=== PATIENT | female | born 1950 | race Hispanic/Latino ===

== ENCOUNTER 2020-12-10 13:25 | Inpatient (IN) | payer MEDICARE ==
[~2020-12-10] VITALS: Ht 154.9 cm; Wt 91.5 kg
[2020-12-10] VITALS (10 sets, daily range): BP systolic 99–151; BP diastolic 65–77
[2020-12-10] MEDS ORDERED: IOHEXOL-350 50ML VIAL IV ONE (14:19)
[2020-12-10] MEDS ORDERED: HEPARIN 10,000 UNIT/10ML (1,000 UNIT/ML) VIAL ONE (14:19)
[2020-12-10] MEDS ORDERED: IOHEXOL 350 MG/ML 100ML INFUS..BTL IV ONE (14:19)
[2020-12-10] MEDS ORDERED: LIDOCAINE HCL 400MG/20ML VIAL ONE (14:19)
[2020-12-10] MEDS ORDERED: MIDAZOLAM HCL 1 MG/ML 2ML VIAL ONE (14:19)
[2020-12-10] MEDS ORDERED: HEPARIN 25,000 UNITS/250ML D5W 250 ML IV SCH (15:30)
[2020-12-10 15:49] LABS: BASOPHILS % (AUTO) 0.1 % (0.0-5.0); HEMATOCRIT 42.8 % (36-48); LYMPHOCYTES % (AUTO) 3.4 % (21.0-51.0); MEAN CORPUSCULAR HEMOGLOBIN 31.9 pg (27.0-33.0); MEAN CORPUSCULAR HGB CONC 33.9 g/dL (32.0-36.0); MEAN CORPUSCULAR VOLUME 94.1 fL (79-99); MONOCYTES % (AUTO) 0.4 % (3.0-13.0); NEUTROPHILS % (AUTO) 95.6 % (40.0-77.0); PLATELET COUNT (AUTO) 157 K/uL (130-400); RED BLOOD CELL COUNT(AUTO) 4.55 MIL/uL (4.00-5.50); RED CELL DISTRIBUTION WIDTH 12.7 % (11.0-15.5); WHITE BLOOD COUNT (AUTO) 14.1 K/uL (4.8-10.8)
[2020-12-10] MEDS: METOPROLOL TARTRATE 25 MG TAB PO SCH (20:44)
[2020-12-10] MEDS ORDERED: MORPHINE 2 MG SYG IVP PRN (21:00)
[2020-12-10] MEDS: ACETAMINOPHEN 325 MG TAB PO PRN (21:53)
[2020-12-11] VITALS (28 sets, daily range): BP systolic 86–133; BP diastolic 53–78
[2020-12-11 05:27] LABS: HEMATOCRIT 42.3 % (36-48); MEAN CORPUSCULAR HEMOGLOBIN 32.3 pg (27.0-33.0); MEAN CORPUSCULAR HGB CONC 34.5 g/dL (32.0-36.0); MEAN CORPUSCULAR VOLUME 93.6 fL (79-99); RED BLOOD CELL COUNT(AUTO) 4.52 MIL/uL (4.00-5.50); RED CELL DISTRIBUTION WIDTH 12.7 % (11.0-15.5); WHITE BLOOD COUNT (AUTO) 16.2 K/uL (4.8-10.8)
[2020-12-11 05:40] LABS: HEMOGLOBIN A1C 5.8 % (4.0-6.0)
[2020-12-11 05:41] LABS: INR 1.02 (0.85-1.15); PROTHROMBIN TIME 10.9 SEC (9.6-11.6)
[2020-12-11 05:43] LABS: PARTIAL THROMBOPLASTIN TIME 46.1 SEC (26.3-35.5)
[2020-12-11 06:18] LABS: ALBUMIN 3.3 g/dL (3.5-5.0); BILIRUBIN,TOTAL 0.8 mg/dL (0.2-1.0); CREATININE 1.4 mg/dL (0.5-1.5); POTASSIUM 3.5 mmol/L (3.5-5.1); TOTAL PROTEIN, SERUM 7.6 g/dL (6.0-8.3)
[2020-12-11 06:22] LABS: TROPONIN I 16.73 ng/mL (0.00-0.06)
[2020-12-11] MEDS ORDERED: MORPHINE 5 MG/ML VIAL (5MG OR GREATER DOSE) IV SCH (06:45)
[2020-12-11] MEDS: CLOPIDOGREL 75MG TAB PO SCH (08:07)
[2020-12-11] MEDS: PANTOPRAZOLE 40 MG TAB DR PO SCH (08:07)
[2020-12-11] MEDS: ATORVASTATIN 40 MG TABLET PO SCH (08:07)
[2020-12-11] MEDS: METOPROLOL TARTRATE 25 MG TAB PO SCH ×2 (08:07→21:18)
[2020-12-11] MEDS ORDERED: CLOPIDOGREL 75MG TAB PO SCH (09:00)
[2020-12-11] MEDS ORDERED: ASPIRIN 81 MG EC TAB PO SCH (09:00)
[2020-12-11] MEDS ORDERED: ATOR40TA71 PO (10:46)
[2020-12-11] MEDS ORDERED: AMLO-257 PO (10:46)
[2020-12-11] MEDS ORDERED: ERGO500093 PO (10:46)
[2020-12-11] MEDS ORDERED: BENZ-70 PO (10:46)
[2020-12-11] MEDS ORDERED: GABA-529 PO (10:46)
[2020-12-11] MEDS ORDERED: LORA10TA7 PO (10:46)
[2020-12-11] MEDS: ENOXAPARIN SODIUM 100 MG/1 ML SQ SCH (14:12)
[2020-12-12] VITALS (18 sets, daily range): BP systolic 90–134; BP diastolic 44–72
[2020-12-12 03:46] LABS: BASOPHILS % (AUTO) 0.2 % (0.0-5.0); EOSINOPHILS % (AUTO) 0.1 % (0.0-8.0); HEMATOCRIT 40.5 % (36-48); LYMPHOCYTES % (AUTO) 22.2 % (21.0-51.0); MEAN CORPUSCULAR HEMOGLOBIN 31.8 pg (27.0-33.0); MEAN CORPUSCULAR HGB CONC 33.3 g/dL (32.0-36.0); MEAN CORPUSCULAR VOLUME 95.3 fL (79-99); MONOCYTES % (AUTO) 6.4 % (3.0-13.0); NEUTROPHILS % (AUTO) 70.7 % (40.0-77.0); PLATELET COUNT (AUTO) 158 K/uL (130-400); RED BLOOD CELL COUNT(AUTO) 4.25 MIL/uL (4.00-5.50); RED CELL DISTRIBUTION WIDTH 13.2 % (11.0-15.5); WHITE BLOOD COUNT (AUTO) 17.6 K/uL (4.8-10.8)
[2020-12-12 04:03] LABS: CREATININE 1.7 mg/dL (0.5-1.5); POTASSIUM 3.6 mmol/L (3.5-5.1)
[2020-12-12] MEDS: ATORVASTATIN 40 MG TABLET PO SCH (09:38)
[2020-12-12] MEDS: CLOPIDOGREL 75MG TAB PO SCH (09:38)
[2020-12-12] MEDS: PANTOPRAZOLE 40 MG TAB DR PO SCH (09:38)
[2020-12-12] MEDS: METOPROLOL TARTRATE 25 MG TAB PO SCH ×2 (09:38→20:58)
[2020-12-12] MEDS: ENOXAPARIN SODIUM 100 MG/1 ML SQ SCH (09:39)
[2020-12-12] MEDS: ACETAMINOPHEN 325 MG TAB PO PRN (09:45)
[2020-12-13] VITALS (24 sets, daily range): BP systolic 90–160; BP diastolic 40–82
[2020-12-13 03:44] LABS: BASOPHILS % (AUTO) 0.3 % (0.0-5.0); EOSINOPHILS % (AUTO) 0.8 % (0.0-8.0); HEMATOCRIT 39.6 % (36-48); LYMPHOCYTES % (AUTO) 24.2 % (21.0-51.0); MEAN CORPUSCULAR HEMOGLOBIN 31.9 pg (27.0-33.0); MEAN CORPUSCULAR HGB CONC 33.1 g/dL (32.0-36.0); MEAN CORPUSCULAR VOLUME 96.4 fL (79-99); NEUTROPHILS % (AUTO) 67.3 % (40.0-77.0); PLATELET COUNT (AUTO) 142 K/uL (130-400); RED BLOOD CELL COUNT(AUTO) 4.11 MIL/uL (4.00-5.50); RED CELL DISTRIBUTION WIDTH 13.2 % (11.0-15.5); WHITE BLOOD COUNT (AUTO) 11.9 K/uL (4.8-10.8)
[2020-12-13 04:01] LABS: BILIRUBIN,TOTAL 0.9 mg/dL (0.2-1.0); CREATININE 1.4 mg/dL (0.5-1.5); POTASSIUM 3.4 mmol/L (3.5-5.1); TOTAL PROTEIN, SERUM 6.8 g/dL (6.0-8.3)
[2020-12-13] MEDS ORDERED: KCL 20 MEQ ERTAB PO PRN (08:15)
[2020-12-13] MEDS ORDERED: POTASSIUM CHLORIDE 20MEQ/100ML 100 ML IV PRN (08:15)
[2020-12-13] MEDS ORDERED: POTASSIUM CHLORIDE 10% ELIXIR 20 MEQ/15 ML UDCUP PO PRN (08:15)
[2020-12-13] MEDS ORDERED: KCL 20 MEQ ERTAB PO ONE (08:47)
[2020-12-13] MEDS: ACETAMINOPHEN 325 MG TAB PO PRN (08:49)
[2020-12-13] MEDS: PANTOPRAZOLE 40 MG TAB DR PO SCH (08:50)
[2020-12-13] MEDS: ATORVASTATIN 40 MG TABLET PO SCH (08:50)
[2020-12-13] MEDS: ENOXAPARIN SODIUM 100 MG/1 ML SQ SCH (08:50)
[2020-12-13] MEDS: METOPROLOL TARTRATE 25 MG TAB PO SCH ×2 (08:50→21:01)
[2020-12-13 14:07] LABS: CREATININE 1.7 mg/dL (0.5-1.5); POTASSIUM 4.7 mmol/L (3.5-5.1)
[2020-12-13 18:10] LABS: CREATININE 1.5 mg/dL (0.5-1.5); POTASSIUM 4.4 mmol/L (3.5-5.1)
[2020-12-14] VITALS (37 sets, daily range): BP systolic 80–198; BP diastolic 40–92
[2020-12-14 03:01] LABS: BASOPHILS % (AUTO) 0.2 % (0.0-5.0); EOSINOPHILS % (AUTO) 1.2 % (0.0-8.0); HEMATOCRIT 37.8 % (36-48); LYMPHOCYTES % (AUTO) 23.8 % (21.0-51.0); MEAN CORPUSCULAR HEMOGLOBIN 33.1 pg (27.0-33.0); MEAN CORPUSCULAR HGB CONC 33.9 g/dL (32.0-36.0); MEAN CORPUSCULAR VOLUME 97.7 fL (79-99); MONOCYTES % (AUTO) 6.1 % (3.0-13.0); NEUTROPHILS % (AUTO) 68.1 % (40.0-77.0); PLATELET COUNT (AUTO) 147 K/uL (130-400); RED BLOOD CELL COUNT(AUTO) 3.87 MIL/uL (4.00-5.50); RED CELL DISTRIBUTION WIDTH 13.2 % (11.0-15.5)
[2020-12-14 03:12] LABS: INR 1.05 (0.85-1.15); PROTHROMBIN TIME 11.2 SEC (9.6-11.6)
[2020-12-14 03:14] LABS: PARTIAL THROMBOPLASTIN TIME 23.4 SEC (26.3-35.5)
[2020-12-14 03:22] LABS: BILIRUBIN,TOTAL 1.1 mg/dL (0.2-1.0); CREATININE 1.7 mg/dL (0.5-1.5); POTASSIUM 4.9 mmol/L (3.5-5.1); TOTAL PROTEIN, SERUM 6.9 g/dL (6.0-8.3)
[2020-12-14] MEDS ORDERED: AMINOCAPROIC ACID 5,000MG VIAL 15,000 MG in 0.9% NACL 500ML IV.SOLN 420 ML IV PRN (08:45)
[2020-12-14] MEDS ORDERED: EPINEPHRINE PF 1MG AMP 10 MG in 0.9% NACL 250ML 240 ML IV PRN (08:45)
[2020-12-14] MEDS: METOPROLOL TARTRATE 25 MG TAB PO SCH (09:00)
[2020-12-14] MEDS: ATORVASTATIN 40 MG TABLET PO SCH (09:00)
[2020-12-14] MEDS: ENOXAPARIN SODIUM 100 MG/1 ML SQ SCH (09:00)
[2020-12-14] MEDS: PANTOPRAZOLE 40 MG TAB DR PO SCH (09:00)
[2020-12-14] MEDS ORDERED: NITROGLYCERIN 50MG/D5W 250ML 1 BOT ONE (11:02)
[2020-12-14] MEDS ORDERED: OCTYL 2-CYANOACRYLATE 1 EACH TP ONE (11:32)
[2020-12-14] MEDS ORDERED: CEFAZOLIN SODIUM 1 GM VIAL ONE ×2 (11:32→12:33)
[2020-12-14] MEDS ORDERED: PAPAVERINE HCL 30 MG/ML 2ML VIAL ONE (11:33)
[2020-12-14] MEDS ORDERED: 0.9%NACL 1000ML 1,000 ML IV ONE (11:53)
[2020-12-14] MEDS ORDERED: LIDOCAINE PF 100MG/5ML (2%) SYRINGE 5ML ONE (12:31)
[2020-12-14] MEDS ORDERED: AMINOCAPROIC ACID 5,000MG VIAL ONE (12:31)
[2020-12-14] MEDS ORDERED: EPINEPHRINE PF 1MG AMP ONE (12:31)
[2020-12-14] MEDS ORDERED: SODIUM BICARB 50MEQ 50ML VIAL 100 ML ONE ×2 (12:31→13:00)
[2020-12-14] MEDS ORDERED: PROTAMINE SULFATE 10 MG/ML 25ML VIAL IV ONE (12:31)
[2020-12-14] MEDS ORDERED: NOREPINEPHRINE BITARTRATE 1 MG/1 ML ML IV ONE (12:31)
[2020-12-14] MEDS ORDERED: HEPARIN 10,000 UNIT/10ML (1,000 UNIT/ML) VIAL ONE ×2 (12:31→12:53)
[2020-12-14] MEDS ORDERED: ESMOLOL HCL 10 MG/ML 10 ML VIAL ONE (12:31)
[2020-12-14] MEDS ORDERED: ROCURONIUM 10MG/1ML SYR 10 MG/ML ML ONE (12:32)
[2020-12-14] MEDS ORDERED: MIDAZOLAM HCL 1 MG/ML 2ML VIAL ONE (12:32)
[2020-12-14] MEDS ORDERED: FENTANYL CITRATE PF 50 MCG/1 ML 20ML VIAL IJ ONE (12:32)
[2020-12-14] MEDS ORDERED: PROPOFOL 10 MG/ML 20ML VIAL IV ONE (12:32)
[2020-12-14] MEDS ORDERED: KETAMINE 50MG/ML SYRINGE 50 MG/ML DISP.SYRIN IV ONE (12:33)
[2020-12-14 13:05] LABS: ABG BASE EXCESS -12.3 mmol/L (-2.0-3.0); ABG HCO3 15.4 mmol/L (21.0-28.0); ABG OXYGEN SATURATION 98.9 % (95.0-99.0); ABG PCO2 43 mmHg (32-45)
[2020-12-14] MEDS ORDERED: SODIUM BICARB 8.4% 50ML SYRINGE ONE (13:07)
[2020-12-14] MEDS ORDERED: AMIODARONE 150MG VIAL ONE (13:14)
[2020-12-14] MEDS ORDERED: CITRIC ACID/SODIUM CITRATE 30 ML UDCUP ONE (13:27)
[2020-12-14] MEDS ORDERED: GLUCAGON 1MG KIT 1 MG ML IM PRN (14:15)
[2020-12-14] MEDS ORDERED: 0.9% NACL 500ML IV.SOLN 500 ML IV SCH (14:15)
[2020-12-14] MEDS ORDERED: ONDANSETRON 4MG INJ IV PRN (14:15)
[2020-12-14] MEDS ORDERED: POTASSIUM PHOS 15 mMOL+NS250ML 250 ML IV PRN (14:15)
[2020-12-14] MEDS ORDERED: PROPOFOL 1000 MG/100 ML 100 ML IV PRN (14:15)
[2020-12-14] MEDS ORDERED: EPINEPHRINE PF 1MG AMP 10 MG in DEXTROSE 5%-WATER 250 ML IV PRN (14:15)
[2020-12-14] MEDS ORDERED: 0.9%NACL 10ML VIAL IVP PRN (14:15)
[2020-12-14] MEDS ORDERED: DEXTROSE 50%-WATER 50 ML DISP.SYRIN IV PRN (14:15)
[2020-12-14] MEDS ORDERED: ALBUMIN (HUMAN) 5% 250 ML IV PRN (14:15)
[2020-12-14] MEDS ORDERED: TRAMADOL HCL 50 MG TABLET PO PRN (14:15)
[2020-12-14] MEDS ORDERED: NITROGLYCERIN 50MG/D5W 250ML 250 BOT IV SCH (14:15)
[2020-12-14] MEDS ORDERED: ACETAMINOPHEN 650 MG SUPPOSITORY RC PRN (14:15)
[2020-12-14] MEDS ORDERED: AMINOCAPROIC ACID 5,000MG VIAL 15,000 MG in 0.9% NACL 250ML 250 ML IV SCH (14:15)
[2020-12-14] MEDS ORDERED: MAGNESIUM 2GM PREMIX 50ML 50 ML IV PRN (14:15)
[2020-12-14] MEDS ORDERED: MORPHINE 2 MG SYG IV PRN ×2 (14:15→15:30)
[2020-12-14] MEDS ORDERED: 0.9%NACL 1000ML 1,000 ML IV SCH (14:15)
[2020-12-14] MEDS ORDERED: INSULIN REGULAR, HUMAN 3ML 100 UNIT in 0.9%NACL 100ML 99 ML IV SCH ×2 (14:15)
[2020-12-14] MEDS ORDERED: NOREPINEPHRIN 4MG/NS 250ML 250 ML IV PRN (14:15)
[2020-12-14 14:33] LABS: ABG BASE EXCESS -0.1 mmol/L (-2.0-3.0); ABG HCO3 24.1 mmol/L (21.0-28.0); ABG OXYGEN SATURATION 98.8 % (95.0-99.0); ABG PCO2 38 mmHg (32-45)
[2020-12-14 15:02] LABS: ABG BASE EXCESS -3.3 mmol/L (-2.0-3.0); ABG HCO3 21.7 mmol/L (21.0-28.0); ABG OXYGEN SATURATION 98.7 % (95.0-99.0); ABG PCO2 39 mmHg (32-45)
[2020-12-14] MEDS ORDERED: SODIUM BICARB 50MEQ 50ML VIAL 50 ML ONE (15:04)
[2020-12-14 16:09] LABS: ABG BASE EXCESS -2.3 mmol/L (-2.0-3.0); ABG OXYGEN SATURATION 97.3 % (95.0-99.0); ABG PCO2 42 mmHg (32-45)
[2020-12-14] MEDS: SODIUM BICARB 50MEQ 50ML VIAL IV PRN ×2 (16:30→19:12)
[2020-12-14 16:36] LABS: HEMATOCRIT 28.5 % (36-48); MEAN CORPUSCULAR HEMOGLOBIN 31.1 pg (27.0-33.0); MEAN CORPUSCULAR VOLUME 94.4 fL (79-99); RED BLOOD CELL COUNT(AUTO) 3.02 MIL/uL (4.00-5.50); RED CELL DISTRIBUTION WIDTH 15.7 % (11.0-15.5); WHITE BLOOD COUNT (AUTO) 25.8 K/uL (4.8-10.8)
[2020-12-14 16:42] LABS: INR 1.19 (0.85-1.15); PROTHROMBIN TIME 12.5 SEC (9.6-11.6)
[2020-12-14 16:43] LABS: CREATININE 2.3 mg/dL (0.5-1.5); MAGNESIUM 1.7 mg/dL (1.80-2.40); PARTIAL THROMBOPLASTIN TIME 23.5 SEC (26.3-35.5); PHOSPHORUS 6.8 mg/dL (2.5-4.9)
[2020-12-14 18:57] LABS: ABG BASE EXCESS -2.4 mmol/L (-2.0-3.0); ABG HCO3 21.7 mmol/L (21.0-28.0); ABG OXYGEN SATURATION 96.3 % (95.0-99.0); ABG PCO2 35 mmHg (32-45)
[2020-12-14] MEDS: CEFAZOLIN SODIUM 1 GM VIAL IV SCH (20:16)
[2020-12-14] MEDS: FAMOTIDINE 20MG VIAL IV SCH (20:17)
[2020-12-14] MEDS ORDERED: ALBUMIN (HUMAN) 5% 250 ML IV ONE (21:30)
[2020-12-14 21:51] LABS: ABG BASE EXCESS -1.6 mmol/L (-2.0-3.0); ABG HCO3 22.6 mmol/L (21.0-28.0); ABG OXYGEN SATURATION 95.6 % (95.0-99.0); ABG PCO2 36 mmHg (32-45)
[2020-12-14 22:07] LABS: HEMATOCRIT 29.8 % (36-48); MEAN CORPUSCULAR HEMOGLOBIN 30.3 pg (27.0-33.0); MEAN CORPUSCULAR HGB CONC 33.2 g/dL (32.0-36.0); MEAN CORPUSCULAR VOLUME 91.1 fL (79-99); PLATELET COUNT (AUTO) 128 K/uL (130-400); RED BLOOD CELL COUNT(AUTO) 3.27 MIL/uL (4.00-5.50); RED CELL DISTRIBUTION WIDTH 16.7 % (11.0-15.5)
[2020-12-14 22:17] LABS: CREATININE 2.4 mg/dL (0.5-1.5); MAGNESIUM 2.5 mg/dL (1.80-2.40); POTASSIUM 3.1 mmol/L (3.5-5.1)
[2020-12-14 22:31] LABS: BAND NEUTROPHILS % (MANUAL) 12 % (0-2); LYMPHOCYTES % (MANUAL) 4 % (22-44); MAN.DIFF COMMENT-IMPRESSION MANUAL DIFFERENTIAL; MONOCYTES % (MANUAL) 3 % (2-9); PLATELET MORPHOLOGY COMMENT ADEQUATE; SEGMENTED NEUTROPHILS % 81 % (40-70)
[2020-12-14] MEDS: POTASSIUM CHLORIDE 20MEQ/100ML 100 ML IV PRN (22:36)
[2020-12-14] MEDS: CALCIUM GLUC 1GM 1 GM in 0.9%NACL 50ML 50 ML IV PRN (22:40)
[2020-12-15] VITALS (24 sets, daily range): BP systolic 72–155; BP diastolic 0–81
[2020-12-15 00:40] LABS: ABG BASE EXCESS 0.8 mmol/L (-2.0-3.0); ABG HCO3 24.2 mmol/L (21.0-28.0); ABG OXYGEN SATURATION 96.8 % (95.0-99.0); ABG PCO2 34 mmHg (32-45)
[2020-12-15] MEDS: POTASSIUM CHLORIDE 20MEQ/100ML 100 ML IV PRN ×3 (00:50→04:51)
[2020-12-15] MEDS: CALCIUM GLUC 1GM 1 GM in 0.9%NACL 50ML 50 ML IV PRN (01:01)
[2020-12-15] MEDS: ONDANSETRON 4MG INJ IVP PRN (02:13)
[2020-12-15 02:55] LABS: ABG BASE EXCESS 1.6 mmol/L (-2.0-3.0); ABG HCO3 25.1 mmol/L (21.0-28.0); ABG OXYGEN SATURATION 95.6 % (95.0-99.0); ABG PCO2 35 mmHg (32-45)
[2020-12-15] MEDS: CEFAZOLIN SODIUM 1 GM VIAL IV SCH ×2 (03:03→08:52)
[2020-12-15 04:18] LABS: HEMATOCRIT 27.3 % (36-48); MEAN CORPUSCULAR HEMOGLOBIN 31.1 pg (27.0-33.0); MEAN CORPUSCULAR HGB CONC 33.7 g/dL (32.0-36.0); MEAN CORPUSCULAR VOLUME 92.2 fL (79-99); NUCLEATED RED BLOOD CELLS 0.2 % (0.0-0.19); RED BLOOD CELL COUNT(AUTO) 2.96 MIL/uL (4.00-5.50); RED CELL DISTRIBUTION WIDTH 16.9 % (11.0-15.5); WHITE BLOOD COUNT (AUTO) 17.4 K/uL (4.8-10.8)
[2020-12-15 04:26] LABS: INR 1.02 (0.85-1.15); PROTHROMBIN TIME 10.9 SEC (9.6-11.6)
[2020-12-15 04:27] LABS: PARTIAL THROMBOPLASTIN TIME 23.4 SEC (26.3-35.5)
[2020-12-15 04:32] LABS: ABG BASE EXCESS 4.2 mmol/L (-2.0-3.0); ABG HCO3 28.3 mmol/L (21.0-28.0); ABG OXYGEN SATURATION 95.8 % (95.0-99.0); ABG PCO2 40 mmHg (32-45)
[2020-12-15 04:34] LABS: BILIRUBIN,TOTAL 0.8 mg/dL (0.2-1.0); CREATININE 2.3 mg/dL (0.5-1.5); MAGNESIUM 2.3 mg/dL (1.80-2.40); POTASSIUM 3.3 mmol/L (3.5-5.1); TOTAL PROTEIN, SERUM 5.9 g/dL (6.0-8.3)
[2020-12-15 07:19] LABS: ABG BASE EXCESS 4.5 mmol/L (-2.0-3.0); ABG HCO3 29.3 mmol/L (21.0-28.0); ABG OXYGEN SATURATION 93.7 % (95.0-99.0); ABG PCO2 44 mmHg (32-45)
[2020-12-15 08:21] LABS: BASOPHILS % (AUTO) 0.2 % (0.0-5.0); HEMATOCRIT 27.2 % (36-48); LYMPHOCYTES % (AUTO) 10.9 % (21.0-51.0); MEAN CORPUSCULAR HEMOGLOBIN 31.5 pg (27.0-33.0); MEAN CORPUSCULAR HGB CONC 34.2 g/dL (32.0-36.0); MEAN CORPUSCULAR VOLUME 92.2 fL (79-99); NEUTROPHILS % (AUTO) 77.2 % (40.0-77.0); NUCLEATED RED BLOOD CELLS 0.2 % (0.0-0.19); PLATELET COUNT (AUTO) 110 K/uL (130-400); RED BLOOD CELL COUNT(AUTO) 2.95 MIL/uL (4.00-5.50); RED CELL DISTRIBUTION WIDTH 17.1 % (11.0-15.5); WHITE BLOOD COUNT (AUTO) 21.7 K/uL (4.8-10.8)
[2020-12-15] MEDS: FUROSEMIDE 20MG VIAL IV SCH ×2 (08:51→21:12)
[2020-12-15] MEDS: TRAMADOL HCL 50 MG TABLET PO PRN ×3 (08:54→22:07)
[2020-12-15] MEDS: ATORVASTATIN 40 MG TABLET PO SCH (09:00)
[2020-12-15] MEDS: ACETAMINOPHEN 325 MG TAB PO PRN ×2 (09:34→18:07)
[2020-12-15] MEDS ORDERED: ALBUMIN (HUMAN) 5% 0 ML IV ONE (19:56)
[2020-12-15] MEDS: FAMOTIDINE 20MG VIAL IV SCH (21:11)
[2020-12-15] MEDS: NOREPINEPHRINE BITARTRATE 8 MG in DEXTROSE 5%-WATER 250 ML IV PRN (23:50)
[2020-12-16] VITALS (91 sets, daily range): BP systolic 72–164; BP diastolic 40–92
[2020-12-16 04:05] LABS: HEMATOCRIT 29.9 % (36-48); MEAN CORPUSCULAR HGB CONC 32.1 g/dL (32.0-36.0); MEAN CORPUSCULAR VOLUME 96.5 fL (79-99); NUCLEATED RED BLOOD CELLS 0.5 % (0.0-0.19); RED BLOOD CELL COUNT(AUTO) 3.1 MIL/uL (4.00-5.50); RED CELL DISTRIBUTION WIDTH 17.2 % (11.0-15.5); WHITE BLOOD COUNT (AUTO) 21.9 K/uL (4.8-10.8)
[2020-12-16 04:12] LABS: CREATININE 1.8 mg/dL (0.5-1.5); MAGNESIUM 1.8 mg/dL (1.80-2.40); POTASSIUM 3.7 mmol/L (3.5-5.1)
[2020-12-16] MEDS: POTASSIUM CHLORIDE 20MEQ/100ML 100 ML IV PRN (04:47)
[2020-12-16] MEDS: METOPROLOL TARTRATE 25 MG TAB PO SCH ×2 (08:58→19:31)
[2020-12-16] MEDS: ATORVASTATIN 40 MG TABLET PO SCH (09:03)
[2020-12-16] MEDS: FUROSEMIDE 20 MG TABLET PO SCH ×2 (09:03→17:28)
[2020-12-16] MEDS: INSULIN HUMULIN R 100 UNIT/ML 3ML SQ SCH ×3 (11:23→20:26)
[2020-12-16] MEDS: ZOSYN 3.375GM+NS 50ML 50 ML IV SCH ×2 (13:44→20:34)
[2020-12-16 14:25] LABS: MAGNESIUM 2.8 mg/dL (1.80-2.40); POTASSIUM 4.4 mmol/L (3.5-5.1)
[2020-12-16] MEDS ORDERED: PHARMACY COMMUNICATION MISC SCH (19:15)
[2020-12-16] MEDS: NOREPINEPHRINE BITARTRATE 8 MG in DEXTROSE 5%-WATER 250 ML IV PRN (20:10)
[2020-12-16] MEDS: FAMOTIDINE 20MG VIAL IV SCH (20:34)
[2020-12-17] VITALS (71 sets, daily range): BP systolic 75–144; BP diastolic 39–72
[2020-12-17 05:09] LABS: HEMATOCRIT 28.6 % (36-48); MEAN CORPUSCULAR HEMOGLOBIN 30.7 pg (27.0-33.0); MEAN CORPUSCULAR HGB CONC 31.8 g/dL (32.0-36.0); MEAN CORPUSCULAR VOLUME 96.6 fL (79-99); NUCLEATED RED BLOOD CELLS 0.4 % (0.0-0.19); RED BLOOD CELL COUNT(AUTO) 2.96 MIL/uL (4.00-5.50); RED CELL DISTRIBUTION WIDTH 16.2 % (11.0-15.5); WHITE BLOOD COUNT (AUTO) 15.6 K/uL (4.8-10.8)
[2020-12-17 05:41] LABS: CREATININE 1.6 mg/dL (0.5-1.5); MAGNESIUM 2.2 mg/dL (1.80-2.40); POTASSIUM 3.7 mmol/L (3.5-5.1)
[2020-12-17] MEDS: ZOSYN 3.375GM+NS 50ML 50 ML IV SCH ×3 (06:14→19:40)
[2020-12-17] MEDS: INSULIN HUMULIN R 100 UNIT/ML 3ML SQ SCH ×4 (06:14→19:37)
[2020-12-17] MEDS: METOPROLOL TARTRATE 25 MG TAB PO SCH ×2 (08:26→21:00)
[2020-12-17] MEDS: CLOPIDOGREL 75MG TAB PO SCH (08:26)
[2020-12-17] MEDS: FUROSEMIDE 20 MG TABLET PO SCH ×2 (09:09→17:57)
[2020-12-17] MEDS: ATORVASTATIN 40 MG TABLET PO SCH (09:09)
[2020-12-17] MEDS: POTASSIUM CHLORIDE 20MEQ/100ML 100 ML IV PRN (09:15)
[2020-12-17] MEDS: ONDANSETRON 4MG INJ IVP PRN (19:10)
[2020-12-17] MEDS: FAMOTIDINE 20MG VIAL IV SCH (19:40)
[2020-12-18] VITALS (18 sets, daily range): BP systolic 96–128; BP diastolic 46–67
[2020-12-18] MEDS: METOPROLOL TARTRATE 25 MG TAB PO SCH ×3 (00:05→20:22)
[2020-12-18] MEDS: ZOSYN 3.375GM+NS 50ML 50 ML IV SCH ×3 (05:01→20:22)
[2020-12-18 05:20] LABS: HEMATOCRIT 29.8 % (36-48); MEAN CORPUSCULAR HEMOGLOBIN 30.3 pg (27.0-33.0); MEAN CORPUSCULAR HGB CONC 30.9 g/dL (32.0-36.0); NUCLEATED RED BLOOD CELLS 0.3 % (0.0-0.19); RED BLOOD CELL COUNT(AUTO) 3.04 MIL/uL (4.00-5.50); RED CELL DISTRIBUTION WIDTH 15.8 % (11.0-15.5)
[2020-12-18 05:50] LABS: CREATININE 1.7 mg/dL (0.5-1.5); POTASSIUM 4.1 mmol/L (3.5-5.1)
[2020-12-18] MEDS: INSULIN HUMULIN R 100 UNIT/ML 3ML SQ SCH ×4 (06:12→20:22)
[2020-12-18] MEDS: ATORVASTATIN 40 MG TABLET PO SCH (08:27)
[2020-12-18] MEDS: FUROSEMIDE 20 MG TABLET PO SCH ×2 (08:27→17:54)
[2020-12-18] MEDS: CLOPIDOGREL 75MG TAB PO SCH (08:28)
[2020-12-18] MEDS ORDERED: ZOSYN 3.375GM+NS 50ML 50 ML IV ONE (19:48)
[2020-12-18] MEDS: FAMOTIDINE 20MG VIAL IV SCH (20:22)
[2020-12-19 03:35] VITALS: BP 117/53
[2020-12-19] MEDS: INSULIN HUMULIN R 100 UNIT/ML 3ML SQ SCH ×4 (05:36→20:43)
[2020-12-19 06:20] LABS: BASOPHILS % (AUTO) 0.2 % (0.0-5.0); EOSINOPHILS % (AUTO) 2.3 % (0.0-8.0); HEMATOCRIT 29.6 % (36-48); LYMPHOCYTES % (AUTO) 11.4 % (21.0-51.0); MEAN CORPUSCULAR HEMOGLOBIN 30.8 pg (27.0-33.0); MEAN CORPUSCULAR HGB CONC 31.8 g/dL (32.0-36.0); MONOCYTES % (AUTO) 6.8 % (3.0-13.0); NEUTROPHILS % (AUTO) 78.4 % (40.0-77.0); NUCLEATED RED BLOOD CELLS 0.4 % (0.0-0.19); PLATELET COUNT (AUTO) 161 K/uL (130-400); RED BLOOD CELL COUNT(AUTO) 3.05 MIL/uL (4.00-5.50); RED CELL DISTRIBUTION WIDTH 15.2 % (11.0-15.5); WHITE BLOOD COUNT (AUTO) 13.4 K/uL (4.8-10.8)
[2020-12-19 06:37] LABS: ALBUMIN 2.4 g/dL (3.5-5.0); CREATININE 1.9 mg/dL (0.5-1.5); MAGNESIUM 2.2 mg/dL (1.80-2.40); POTASSIUM 3.7 mmol/L (3.5-5.1); TOTAL PROTEIN, SERUM 6.4 g/dL (6.0-8.3)
[2020-12-19] MEDS ORDERED: POTASSIUM CHLORIDE 10% ELIXIR 20 MEQ/15 ML UDCUP PO PRN (07:30)
[2020-12-19] MEDS: METOPROLOL TARTRATE 25 MG TAB PO SCH ×2 (08:43→20:43)
[2020-12-19] MEDS: FUROSEMIDE 20 MG TABLET PO SCH ×2 (08:43→15:45)
[2020-12-19] MEDS: ZOSYN 3.375GM+NS 50ML 50 ML IV SCH ×2 (08:43→20:43)
[2020-12-19] MEDS: ATORVASTATIN 40 MG TABLET PO SCH (08:43)
[2020-12-19] MEDS: CLOPIDOGREL 75MG TAB PO SCH (08:44)
[2020-12-19 09:17] VITALS: BP 144/65
[2020-12-19 11:53] VITALS: BP 104/56
[2020-12-19] MEDS: ACETAMINOPHEN 325 MG TAB PO PRN (15:45)
[2020-12-19 16:42] VITALS: BP 119/74
[2020-12-19 20:00] VITALS: BP 102/55
[2020-12-19] MEDS: FAMOTIDINE 20MG VIAL IV SCH (20:43)
[2020-12-20] VITALS: BP 98/59
[2020-12-20 04:00] VITALS: BP 104/70
[2020-12-20] MEDS: INSULIN HUMULIN R 100 UNIT/ML 3ML SQ SCH ×4 (07:25→21:00)
[2020-12-20 08:24] VITALS: BP 98/60
[2020-12-20 08:45] LABS: BASOPHILS % (AUTO) 0.3 % (0.0-5.0); EOSINOPHILS % (AUTO) 2.1 % (0.0-8.0); HEMATOCRIT 30.1 % (36-48); LYMPHOCYTES % (AUTO) 9.9 % (21.0-51.0); MEAN CORPUSCULAR HEMOGLOBIN 31.2 pg (27.0-33.0); MEAN CORPUSCULAR HGB CONC 32.2 g/dL (32.0-36.0); MEAN CORPUSCULAR VOLUME 96.8 fL (79-99); MONOCYTES % (AUTO) 5.4 % (3.0-13.0); NEUTROPHILS % (AUTO) 81.1 % (40.0-77.0); NUCLEATED RED BLOOD CELLS 0.2 % (0.0-0.19); PLATELET COUNT (AUTO) 172 K/uL (130-400); RED BLOOD CELL COUNT(AUTO) 3.11 MIL/uL (4.00-5.50); RED CELL DISTRIBUTION WIDTH 16.1 % (11.0-15.5)
[2020-12-20 08:54] LABS: CREATININE 1.8 mg/dL (0.5-1.5); POTASSIUM 3.7 mmol/L (3.5-5.1)
[2020-12-20] MEDS: CLOPIDOGREL 75MG TAB PO SCH (08:59)
[2020-12-20] MEDS: ATORVASTATIN 40 MG TABLET PO SCH (08:59)
[2020-12-20] MEDS: FUROSEMIDE 20 MG TABLET PO SCH ×2 (08:59→16:59)
[2020-12-20] MEDS: METOPROLOL TARTRATE 25 MG TAB PO SCH ×2 (09:00→21:43)
[2020-12-20] MEDS: ZOSYN 3.375GM+NS 50ML 50 ML IV SCH ×2 (09:00→21:43)
[2020-12-20 11:00] VITALS: BP 97/58
[2020-12-20 16:52] VITALS: BP 103/66
[2020-12-20 20:00] VITALS: BP 113/64
[2020-12-20] MEDS: FAMOTIDINE 20MG VIAL IV SCH (21:43)
[2020-12-20] MEDS ORDERED: SIMETHICONE 80 MG TAB.CHEW PO PRN (22:45)
[2020-12-21] VITALS: BP 100/52
[2020-12-21 04:00] VITALS: BP 146/69
[2020-12-21 05:37] LABS: BASOPHILS % (AUTO) 0.1 % (0.0-5.0); EOSINOPHILS % (AUTO) 0.8 % (0.0-8.0); HEMATOCRIT 32.1 % (36-48); LYMPHOCYTES % (AUTO) 5.8 % (21.0-51.0); MEAN CORPUSCULAR HGB CONC 31.8 g/dL (32.0-36.0); MEAN CORPUSCULAR VOLUME 97.6 fL (79-99); MONOCYTES % (AUTO) 4.6 % (3.0-13.0); NEUTROPHILS % (AUTO) 87.3 % (40.0-77.0); NUCLEATED RED BLOOD CELLS 0.2 % (0.0-0.19); PLATELET COUNT (AUTO) 205 K/uL (130-400); RED BLOOD CELL COUNT(AUTO) 3.29 MIL/uL (4.00-5.50); RED CELL DISTRIBUTION WIDTH 16.5 % (11.0-15.5); WHITE BLOOD COUNT (AUTO) 20.2 K/uL (4.8-10.8)
[2020-12-21] MEDS: INSULIN HUMULIN R 100 UNIT/ML 3ML SQ SCH ×4 (05:38→21:00)
[2020-12-21 06:07] LABS: CREATININE 1.7 mg/dL (0.5-1.5); POTASSIUM 3.4 mmol/L (3.5-5.1)
[2020-12-21 07:51] VITALS: BP 140/73
[2020-12-21] MEDS: ZOSYN 3.375GM+NS 50ML 50 ML IV SCH ×2 (09:35→21:44)
[2020-12-21] MEDS: METOPROLOL TARTRATE 25 MG TAB PO SCH ×2 (09:35→21:44)
[2020-12-21] MEDS: FUROSEMIDE 20 MG TABLET PO SCH ×2 (09:36→17:07)
[2020-12-21] MEDS: ATORVASTATIN 40 MG TABLET PO SCH (09:36)
[2020-12-21] MEDS: KCL 20 MEQ ERTAB PO PRN (09:43)
[2020-12-21 11:20] VITALS: BP 118/65
[2020-12-21] MEDS: 0.9%NACL 1000ML 1,000 ML IV SCH (13:37)
[2020-12-21] MEDS: CLOPIDOGREL 75MG TAB PO SCH (13:39)
[2020-12-21 16:11] VITALS: BP 120/79
[2020-12-21] MEDS: ONDANSETRON 4MG INJ IVP PRN ×2 (17:06→22:58)
[2020-12-21 20:00] VITALS: BP 135/70
[2020-12-21] MEDS: FAMOTIDINE 20MG VIAL IV SCH (21:44)
[2020-12-21] MEDS: ACETAMINOPHEN 325 MG TAB PO PRN (23:00)
[2020-12-22] VITALS: BP 118/69
[2020-12-22] MEDS: ACETAMINOPHEN 325 MG TAB PO PRN (03:11)
[2020-12-22 04:00] VITALS: BP 131/67
[2020-12-22] MEDS: INSULIN HUMULIN R 100 UNIT/ML 3ML SQ SCH ×4 (06:11→20:48)
[2020-12-22 07:03] LABS: ALBUMIN 2.6 g/dL (3.5-5.0); CREATININE 1.7 mg/dL (0.5-1.5); POTASSIUM 3.2 mmol/L (3.5-5.1); TOTAL PROTEIN, SERUM 6.5 g/dL (6.0-8.3)
[2020-12-22] MEDS ORDERED: POLYETHYLENE GLYCOL 3350 17 GM POWD.PACK PO SCH (07:30)
[2020-12-22] MEDS ORDERED: LACTULOSE 20 GM/30 ML UDCUP PO PRN (07:45)
[2020-12-22 07:47] VITALS: BP 123/69
[2020-12-22] MEDS ORDERED: BISACODYL 10 MG SUPP.RECT RC SCH ×2 (09:15→21:00)
[2020-12-22] MEDS: 0.9%NACL 1000ML 1,000 ML IV SCH (09:30)
[2020-12-22 11:44] VITALS: BP 132/70
[2020-12-22] MEDS: ZOSYN 3.375GM+NS 50ML 50 ML IV SCH ×2 (11:59→20:06)
[2020-12-22] MEDS: METOPROLOL TARTRATE 25 MG TAB PO SCH ×2 (12:00→20:06)
[2020-12-22] MEDS: CLOPIDOGREL 75MG TAB PO SCH (12:00)
[2020-12-22] MEDS: FUROSEMIDE 20 MG TABLET PO SCH ×2 (12:00→18:58)
[2020-12-22] MEDS: ATORVASTATIN 40 MG TABLET PO SCH (12:01)
[2020-12-22] MEDS: KCL 20 MEQ ERTAB PO PRN ×3 (12:01→20:06)
[2020-12-22 16:08] VITALS: BP 134/66
[2020-12-22] MEDS: CLINIMIX-E4.25%AA/D5+LYT2000ML 2,000 ML IV SCH (19:02)
[2020-12-22 19:28] VITALS: BP 120/73
[2020-12-22] MEDS: FAMOTIDINE 20MG VIAL IV SCH (20:05)
[2020-12-23] VITALS (7 sets, daily range): BP systolic 93–129; BP diastolic 46–69
[2020-12-23] MEDS: INSULIN HUMULIN R 100 UNIT/ML 3ML SQ SCH ×4 (05:53→21:00)
[2020-12-23 06:50] LABS: BASOPHILS % (AUTO) 0.2 % (0.0-5.0); EOSINOPHILS % (AUTO) 3.2 % (0.0-8.0); HEMATOCRIT 32.4 % (36-48); LYMPHOCYTES % (AUTO) 9.8 % (21.0-51.0); MEAN CORPUSCULAR HEMOGLOBIN 31.2 pg (27.0-33.0); MEAN CORPUSCULAR HGB CONC 31.5 g/dL (32.0-36.0); MEAN CORPUSCULAR VOLUME 99.1 fL (79-99); MONOCYTES % (AUTO) 6.6 % (3.0-13.0); NEUTROPHILS % (AUTO) 78.7 % (40.0-77.0); NUCLEATED RED BLOOD CELLS 0.3 % (0.0-0.19); PLATELET COUNT (AUTO) 234 K/uL (130-400); RED BLOOD CELL COUNT(AUTO) 3.27 MIL/uL (4.00-5.50); RED CELL DISTRIBUTION WIDTH 17.6 % (11.0-15.5); WHITE BLOOD COUNT (AUTO) 15.8 K/uL (4.8-10.8)
[2020-12-23] MEDS ORDERED: PHARMACY COMMUNICATION MISC SCH (07:00)
[2020-12-23 07:05] LABS: CREATININE 1.7 mg/dL (0.5-1.5); POTASSIUM 3.4 mmol/L (3.5-5.1)
[2020-12-23] MEDS ORDERED: PERMETHRIN LOTION 1% 59ML BOTTLE TP SCH (09:00)
[2020-12-23] MEDS: ZOSYN 3.375GM+NS 50ML 50 ML IV SCH ×2 (09:05→21:02)
[2020-12-23] MEDS: METOPROLOL TARTRATE 25 MG TAB PO SCH ×2 (09:07→21:02)
[2020-12-23] MEDS: ATORVASTATIN 40 MG TABLET PO SCH (09:07)
[2020-12-23] MEDS: FUROSEMIDE 20 MG TABLET PO SCH ×2 (09:07→16:18)
[2020-12-23] MEDS: CLOPIDOGREL 75MG TAB PO SCH (09:07)
[2020-12-23] MEDS: CLINIMIX-E4.25%AA/D5+LYT2000ML 2,000 ML IV SCH (17:45)
[2020-12-23] MEDS: FAMOTIDINE 20MG VIAL IV SCH (21:02)
[2020-12-24] MEDS: 0.9%NACL 1000ML 1,000 ML IV SCH (00:32)
[2020-12-24 04:08] VITALS: BP 113/53
[2020-12-24] MEDS: INSULIN HUMULIN R 100 UNIT/ML 3ML SQ SCH ×2 (06:07→11:30)
[2020-12-24 06:54] LABS: BASOPHILS % (AUTO) 0.2 % (0.0-5.0); EOSINOPHILS % (AUTO) 4.3 % (0.0-8.0); HEMATOCRIT 30.5 % (36-48); LYMPHOCYTES % (AUTO) 11.9 % (21.0-51.0); MEAN CORPUSCULAR HEMOGLOBIN 30.4 pg (27.0-33.0); MEAN CORPUSCULAR HGB CONC 30.5 g/dL (32.0-36.0); MEAN CORPUSCULAR VOLUME 99.7 fL (79-99); MONOCYTES % (AUTO) 5.8 % (3.0-13.0); NEUTROPHILS % (AUTO) 76.2 % (40.0-77.0); NUCLEATED RED BLOOD CELLS 0.1 % (0.0-0.19); PLATELET COUNT (AUTO) 208 K/uL (130-400); RED BLOOD CELL COUNT(AUTO) 3.06 MIL/uL (4.00-5.50); RED CELL DISTRIBUTION WIDTH 17.6 % (11.0-15.5); WHITE BLOOD COUNT (AUTO) 13.9 K/uL (4.8-10.8)
[2020-12-24 07:11] LABS: CREATININE 1.7 mg/dL (0.5-1.5); POTASSIUM 3.7 mmol/L (3.5-5.1)
[2020-12-24] MEDS ORDERED: FURO20TA6 PO (07:17)
[2020-12-24] MEDS ORDERED: METO-391 PO (07:17)
[2020-12-24] MEDS ORDERED: CLOP75TA14 PO (07:17)
[2020-12-24 07:29] VITALS: BP 101/64
[2020-12-24] MEDS: METOPROLOL TARTRATE 25 MG TAB PO SCH (09:00)
[2020-12-24] MEDS: CLOPIDOGREL 75MG TAB PO SCH (09:36)
[2020-12-24] MEDS: FUROSEMIDE 20 MG TABLET PO SCH (09:36)
[2020-12-24] MEDS: ATORVASTATIN 40 MG TABLET PO SCH (09:36)
[2020-12-24 11:54] VITALS: BP 103/52
== END 2020-12-24 16:27 | disposition home or self-care (01) | DRG 233 ==
LOC: EDHIP 14:00 → 2DH 14:25 → 2CH 12-13 13:50 → 4DH 12-18 16:04
PROVIDERS: ADMIT Internal Medicine Cardiovascular Disease; ATTEND Internal Medicine Cardiovascular Disease
PROC: 4A023N7 Measurement of Cardiac Sampling and Pressure, Left Heart, Percutaneous Approach (ICD-10-PCS; 2020-12-10)
PROC: B2111ZZ Fluoroscopy of Multiple Coronary Arteries using Low Osmolar Contrast (ICD-10-PCS; 2020-12-10)
PROC: B2151ZZ Fluoroscopy of Left Heart using Low Osmolar Contrast (ICD-10-PCS; 2020-12-10)
PROC: 06BQ4ZZ Excision of Left Saphenous Vein, Percutaneous Endoscopic Approach (ICD-10-PCS; 2020-12-14)
PROC: 3E05317 Introduction of Other Thrombolytic into Peripheral Artery, Percutaneous Approach (ICD-10-PCS; 2020-12-14)
PROC: 05HY33Z Insertion of Infusion Device into Upper Vein, Percutaneous Approach (ICD-10-PCS; 2020-12-14)
PROC: 30233R1 Transfusion of Nonautologous Platelets into Peripheral Vein, Percutaneous Approach (ICD-10-PCS; 2020-12-14)
PROC: 30233N1 Transfusion of Nonautologous Red Blood Cells into Peripheral Vein, Percutaneous Approach (ICD-10-PCS; 2020-12-14)
PROC: 0210099 Bypass Coronary Artery, One Artery from Left Internal Mammary with Autologous Venous Tissue, Open Approach (ICD-10-PCS; principal; 2020-12-14 12:45)
DX: I21.09 ST elevation (STEMI) myocardial infarction involving other coronary artery of anterior wall (principal); J15.6 Pneumonia due to other Gram-negative bacteria; I50.41 Acute combined systolic (congestive) and diastolic (congestive) heart failure; J96.91 Respiratory failure, unspecified with hypoxia; I40.0 Infective myocarditis; N17.9 Acute kidney failure, unspecified; J93.83 Other pneumothorax; N39.0 Urinary tract infection, site not specified; E87.0 Hyperosmolality and hypernatremia; G93.40 Encephalopathy, unspecified; D62 Acute posthemorrhagic anemia; J44.0 Chronic obstructive pulmonary disease with (acute) lower respiratory infection; J98.11 Atelectasis; J91.8 Pleural effusion in other conditions classified elsewhere; I13.0 Hypertensive heart and chronic kidney disease with heart failure and stage 1 through stage 4 chronic kidney disease, or unspecified chronic kidney disease; I25.118 Atherosclerotic heart disease of native coronary artery with other forms of angina pectoris; F17.200 Nicotine dependence, unspecified, uncomplicated; N18.31 Chronic kidney disease, stage 3a; E11.22 Type 2 diabetes mellitus with diabetic chronic kidney disease; S30.1XXA Contusion of abdominal wall, initial encounter; I95.9 Hypotension, unspecified; K59.00 Constipation, unspecified; R50.82 Postprocedural fever; E87.70 Fluid overload, unspecified; E87.6 Hypokalemia; R53.81 Other malaise; E78.5 Hyperlipidemia, unspecified; E78.00 Pure hypercholesterolemia, unspecified; I65.21 Occlusion and stenosis of right carotid artery; E66.9 Obesity, unspecified; Z88.6 Allergy status to analgesic agent; Z82.49 Family history of ischemic heart disease and other diseases of the circulatory system; Z79.899 Other long term (current) drug therapy; Z79.02 Long term (current) use of antithrombotics/antiplatelets; Z74.01 Bed confinement status; Z68.38 Body mass index [BMI] 38.0-38.9, adult; Y92.89 Other specified places as the place of occurrence of the external cause; Z20.822 Contact with and (suspected) exposure to COVID-19
CPT/HCPCS: 36415; 71045; 74018; 76882; 80048; 80053; 80061; 82435; 82550; 82803; 82947; 82948; 83036; 83605; 83735; 83874; 83880; 84100; 84132; 84145; 84295; 84484; 85014; 85018; 85025; 85027; 85347; 85610; 85730; 86850; 86900; 86901; 86923; 87040; 93005; 93306; 93356; 93458; 93880; 94002; 94003; 94010; 94150; 97039; A7048; C1894; G0378; J0171; J0282; J0690; J1644; J1650; J1815; J1940; J2001; J2250; J2405; J2440; J2543; J2704; J2720; J3010; J3475; J3480; J3490; J7030; J7040; J7050; J7060; P9012; P9016; P9034; P9045; Q9967; U0003

== ENCOUNTER 2020-12-28 07:39 | Observation (INO) | payer MEDICARE ==
[~2020-12-28 07:39] MED LIST: ATOR40TA71 PO; CLOP75TA14 PO; ERGO500014 PO; FURO20TA6 PO; GABA-529 PO; LORA10TA7 PO; METO-391 PO
[2020-12-28 08:01] LABS: BASOPHILS % (AUTO) 0.3 % (0.0-5.0); EOSINOPHILS % (AUTO) 4.6 % (0.0-8.0); HEMATOCRIT 30.3 % (36-48); LYMPHOCYTES % (AUTO) 17.3 % (21.0-51.0); MEAN CORPUSCULAR HEMOGLOBIN 31.2 pg (27.0-33.0); MEAN CORPUSCULAR HGB CONC 31.7 g/dL (32.0-36.0); MEAN CORPUSCULAR VOLUME 98.4 fL (79-99); MONOCYTES % (AUTO) 8.7 % (3.0-13.0); NEUTROPHILS % (AUTO) 67.4 % (40.0-77.0); PLATELET COUNT (AUTO) 187 K/uL (130-400); RED BLOOD CELL COUNT(AUTO) 3.08 MIL/uL (4.00-5.50); RED CELL DISTRIBUTION WIDTH 17.4 % (11.0-15.5); WHITE BLOOD COUNT (AUTO) 9.5 K/uL (4.8-10.8)
[2020-12-28 08:25] LABS: ALBUMIN 2.5 g/dL (3.5-5.0); BILIRUBIN,TOTAL 1.9 mg/dL (0.2-1.0); CREATININE 1.4 mg/dL (0.5-1.5); POTASSIUM 3.6 mmol/L (3.5-5.1); TOTAL PROTEIN, SERUM 6.1 g/dL (6.0-8.3)
[2020-12-28 08:48] LABS: INR 1.06 (0.85-1.15); PROTHROMBIN TIME 11.5 SEC (9.6-11.6)
[2020-12-28 08:50] LABS: PARTIAL THROMBOPLASTIN TIME 25.8 SEC (26.3-35.5)
[2020-12-28] MEDS ORDERED: IOHEXOL-350 75 ML VIAL IV ONE (09:47)
[2020-12-28] MEDS ORDERED: METOPROLOL SUCCINATE 50 MG TAB.SR.24H PO ONE (11:56)
[2020-12-28] MEDS ORDERED: CLOPIDOGREL BISULFATE 75 MG TAB ONE (11:56)
[2020-12-28] MEDS ORDERED: FUROSEMIDE 20 MG TABLET ONE (11:56)
[2020-12-28 14:06] LABS: APPEARANCE,URINE Clear (CLEAR); BILIRUBIN,URINE Negative (NEGATIVE); COLOR,URINE Yellow (YELLOW); GLUCOSE, URINE (UA) Negative (NEGATIVE); KETONES,URINE Negative (NEGATIVE); LEUKOCYTE ESTERASE ,URINE Small (NEGATIVE); NITRATE,URINE Negative (NEGATIVE); OCCULT BLOOD,URINE Large (NEGATIVE); PROTEIN,URINE Trace mg/dL (NEGATIVE); UROBILINOGEN,URINE 0.2 mg/dL (0.2-1.0)
[2020-12-28 14:19] LABS: BACTERIA,URINE Few /HPF (None Seen); MUCUS,URINE Few LPF (None Seen); SQUAMOUS EPITHELIAL CELL,UR Moderate /HPF (0-2)
[2020-12-28] MEDS ORDERED: ONDANSETRON HCL 4 MG/2 ML VIAL IV PRN (16:15)
[2020-12-28] MEDS ORDERED: MORPHINE SULFATE 2 MG/ML 1ML SYG IV PRN (16:15)
[2020-12-28] MEDS ORDERED: ACETAMINOPHEN 325 MG TAB PO PRN ×2 (16:15)
[2020-12-28 17:02] LABS: THYROID STIMULATING HORMONE 3.52 uIU/mL (0.36-3.74)
[2020-12-28 17:15] LABS: HEMOGLOBIN A1C 5.4 % (4.0-6.0)
[2020-12-28 18:00] LABS: CREATINE KINASE, TOTAL 57 U/L (21-232); MYOGLOBIN 104 ng/mL (10-92); TROPONIN I < 0.04 ng/mL (0.00-0.06)
[2020-12-28 20:55] VITALS: BP 156/64
[2020-12-28 23:07] VITALS: BP 91/40
[2020-12-29] MEDS ORDERED: ATORVASTATIN CALCIUM 40 MG TABLET PO SCH (00:30)
[2020-12-29 01:49] LABS: CREATINE KINASE, TOTAL 47 U/L (21-232); MYOGLOBIN 100 ng/mL (10-92); TROPONIN I < 0.04 ng/mL (0.00-0.06)
[2020-12-29 03:25] VITALS: BP 102/49
[2020-12-29] MEDS: FUROSEMIDE 20 MG TABLET PO SCH ×2 (06:03→07:50)
[2020-12-29 06:06] LABS: BASOPHILS % (AUTO) 0.3 % (0.0-5.0); HEMATOCRIT 32.5 % (36-48); LYMPHOCYTES % (AUTO) 22.1 % (21.0-51.0); MEAN CORPUSCULAR HEMOGLOBIN 31.4 pg (27.0-33.0); MEAN CORPUSCULAR HGB CONC 31.4 g/dL (32.0-36.0); MONOCYTES % (AUTO) 7.5 % (3.0-13.0); NEUTROPHILS % (AUTO) 63.8 % (40.0-77.0); PLATELET COUNT (AUTO) 202 K/uL (130-400); RED BLOOD CELL COUNT(AUTO) 3.25 MIL/uL (4.00-5.50); RED CELL DISTRIBUTION WIDTH 17.3 % (11.0-15.5); WHITE BLOOD COUNT (AUTO) 9.5 K/uL (4.8-10.8)
[2020-12-29 06:32] LABS: ALANINE AMINOTRANSFERASE 28 U/L (12-78); ALBUMIN 2.7 g/dL (3.5-5.0); ASPARTATE AMINOTRANSFERASE 36 U/L (10-37); BILIRUBIN,TOTAL 1.9 mg/dL (0.2-1.0); CARBON DIOXIDE 23 mmol/L (21-32); CHLORIDE 103 mmol/L (101-111); CREATINE KINASE, TOTAL 52 U/L (21-232); CREATININE 1.4 mg/dL (0.5-1.5); GLOMERULAR FILTR. RATE CALC 40 mL/min (>60); GLUCOSE,RANDOM 78 mg/dL (70-105); MYOGLOBIN 109 ng/mL (10-92); SODIUM SERUM 136 mmol/L (136-145); TOTAL PROTEIN, SERUM 6.8 g/dL (6.0-8.3); TROPONIN I < 0.04 ng/mL (0.00-0.06); UREA NITROGEN, BLOOD 16 mg/dL (7-18)
[2020-12-29 07:48] VITALS: BP 124/63
[2020-12-29] MEDS ORDERED: METOPROLOL SUCCINATE 50 MG TAB.SR.24H PO SCH (09:00)
[2020-12-29] MEDS ORDERED: CLOPIDOGREL BISULFATE 75 MG TAB PO SCH (09:00)
[2020-12-29] MEDS ORDERED: FUROSEMIDE 20 MG TABLET PO SCH (09:00)
[2020-12-29 11:48] VITALS: BP 127/59
== END 2020-12-29 14:15 | disposition home or self-care (01) ==
LOC: EDH 07:39 → INTOOBSV 16:02 → EDHIP 16:02 → 4CH 20:50
PROVIDERS: ADMIT Internal Medicine; ATTEND Internal Medicine
DX: R07.89 Other chest pain (principal); I25.10 Atherosclerotic heart disease of native coronary artery without angina pectoris; J90 Pleural effusion, not elsewhere classified; I25.2 Old myocardial infarction; D72.829 Elevated white blood cell count, unspecified; L76.32 Postprocedural hematoma of skin and subcutaneous tissue following other procedure; J95.811 Postprocedural pneumothorax; E78.00 Pure hypercholesterolemia, unspecified; I10 Essential (primary) hypertension; E78.5 Hyperlipidemia, unspecified; Z95.1 Presence of aortocoronary bypass graft; Z79.02 Long term (current) use of antithrombotics/antiplatelets; Z79.899 Other long term (current) drug therapy; Z88.6 Allergy status to analgesic agent
CPT/HCPCS: 36415 ×2; 71045; 71275; 80053 ×2; 80061; 81001; 82550 ×4; 83036; 83874 ×3; 83880; 84443; 84484 ×4; 85025 ×2; 85610; 85730; 87040 ×2; 87077; 87088; 87186; 93005 ×3; 97039; 97116; 97161; 99285; G0378 ×22; G8978; G8979; G8980; G8981; G8982; G8983; Q9967